=== PATIENT | female | born 1935 | race Caucasian/White ===

== ENCOUNTER 2016-11-03 14:10 | Emergency (ER) | payer MEDICARE ==
[2016-11-03] MEDS ORDERED: Aspirin Low Dose CHEW TAB* 81 MG PO ONE (14:38)
[2016-11-03 15:08] LABS: Hematocrit 41 % (35-47); Hemoglobin 13.6 g/dl (12.0-16.0); Mean Corpuscular HGB Conc 34 g/dl (31-36); Mean Corpuscular Hemoglobin 30 pg (27-31); Mean Corpuscular Volume 89 fL (80-97); Mean Platelet Volume 9 um3 (7.4-10.4); Red Blood Count 4.58 10^6/ul (4.0-5.4); Red Cell Distribution Width 14 % (10.5-15); White Blood Count 8.5 10^3/ul (3.5-10.8)
[2016-11-03 15:16] LABS: Albumin 4.2 g/dL (3.2-5.2); Calcium 9.9 mg/dL (8.6-10.3); EGFR African American 102.1 (>60); EGFR Non-African American 79.4 (>60); Globulin 2.5 g/dL (2-4); Potassium 3.6 mmol/L (3.5-5.0); Total Bilirubin 0.5 mg/dL (0.2-1.0); Total Protein 6.7 g/dL (6.4-8.9)
[2016-11-03 15:37] LABS: TSH (Thyroid Stimulating Horm) 1.55 mcIU/mL (0.34-5.60)
[2016-11-03] MEDS ORDERED: LORazepam INJ* 2 MG/ML 1 ML VIAL IV PUSH ONE (15:41)
[2016-11-03 16:53] VITALS: BP 132/68
--- NOTE | 2016-11-03 16:58 | ED ---
Frank Manzo Erika, scribed for Seun Agee MD on 11/03/16 at 1442 . Shortness of Breath - HPI Summary HPI Summary: Patient is a 81-year-old female presenting to the ED with a CC of difficulty breathing. Pt reports that the past two mornings and nights when waking up and going to sleep, she has noted the SOB. She has not noted any SOB besides this. Pt has also noted some heaviness in her chest intermittently, which never lasts long. She denies fever and cough. Pt reports a lot of recent stress, as her twin sister has cancer. Hx HTN - did not take medication this morning. Hx GERD. Pt does not smoke, and occasionally drinks. - History of Current Complaint Chief Complaint: EDShortnessOfBreath Hx Obtained From: Patient, Family/International Project Manager - Onset/Duration: Sudden Onset, Lasting Minutes Timing: Intermittent Episodes Lasting: Current Severity: None Dyspnea At: Rest Alleviating Factors: Spontaneous Resolution - Allergy/Home Medications Allergies/Adverse Reactions: Allergies Allergy/AdvReac Type Severity Reaction Status Date / Time Carvedilol [From Coreg] Allergy Swelling Verified 06/22/16 14:32 CI Pigment Blue 63 Allergy Nausea Verified 06/22/16 14:32 [From Bystolic] Nebivolol [From Bystolic] Allergy Nausea Verified 06/22/16 14:32 Sorbitan [From Bystolic] Allergy Nausea Verified 06/22/16 14:32 Yellow Dye [From Bystolic] Allergy Nausea Verified 06/22/16 14:32 shrimp Allergy Swelling Uncoded 06/22/16 14:32 PMH/Surg Hx/FS Hx/Imm Hx Endocrine/Hematology History: Denies: Hx Diabetes, Hx Thyroid Disease Cardiovascular History: Reports: Hx Angina - INFREQUENT HEAVINESS PER PATIENT, Hx Hypertension, Other Cardiovascular Problems/Disorders - ANGINA/ARRHYTHMIA Denies: Hx Coronary Artery Disease, Hx Hypercholesterolemia, Hx Myocardial Infarction, Hx Valvular Heart Disease Respiratory History: Denies: Hx Asthma, Hx Chronic Obstructive Pulmonary Disease (COPD) GI History: Denies: Hx Ulcer - Cancer History Cancer Type, Location and Year: Ovarian cancer - Surgical History Surgery Procedure, Year, and Place: hysterectomy. tonsilectomy Infectious Disease History: Yes Infectious Disease History: Reports: History Other Infectious Disease - lyme 2014 Denies: Hx Clostridium Difficile, Hx Hepatitis, Hx Human Immunodeficiency Virus (HIV), Hx of Known/Suspected MRSA, Hx Shingles, Hx Tuberculosis, Hx Known/ Suspected VRE, Hx Known/Suspected VRSA, Traveled Outside the [place] in Last 30 Days - Family History Known Family History: Positive: Cardiac Disease - Father - of [place], Hypertension, Blood Disorder - PE - Social History Lives: With Family Alcohol Use: None Hx Substance Use: No Substance Use Type: Reports: None Hx Tobacco Use: No Smoking Status (MU): Never Smoked Tobacco Have You Smoked in the Last Year: No Review of Systems Negative: Fever Cardiovascular: Other - intermittent heaviness in chest Positive: Shortness Of Breath. Negative: Cough Psychological: Other - Recent stress All Other Systems Reviewed And Are Negative: Yes Physical Exam - Summary Physical Exam Summary: VITAL SIGNS: Reviewed. GENERAL: Patient is a well developed and nourished nervous female who is lying comfortable in the stretcher. Patient is not in any acute respiratory distress. HEAD AND FACE: No signs of trauma. No ecchymosis, hematomas or skull depressions. No sinus tenderness. EYES: PERRLA, EOMI x 2, No injected conjunctiva, no nystagmus. EARS: Hearing grossly intact. Ear canals and tympanic membranes are within normal limits. MOUTH: Oropharynx within normal limits. NECK: Supple, trachea is midline, no adenopathy, no JVD, no carotid bruit, no c- spine tenderness, neck with full ROM. CHEST: Symmetric, no tenderness at palpation LUNGS: Clear to auscultation bilaterally. No wheezing or crackles. CVS: Regular rate and rhythm, S1 and S2 present, no murmurs or gallops appreciated. ABDOMEN: Soft, non-tender. No signs of distention. No rebound no guarding, and no masses palpated. Bowel sounds are normal. EXTREMITIES: FROM in all major joints, no edema, no cyanosis or clubbing. NEURO: Alert and oriented x 3. No acute neurological deficits. Speech is normal and follows commands. SKIN: Dry and warm Triage Information Reviewed: Yes Vital Signs On Initial Exam: Initial Vitals Temp Pulse Resp BP Pulse Ox 99 F 69 16 209/71 100 11/03/16 14:14 11/03/16 14:14 11/03/16 14:14 11/03/16 14:14 11/03/16 14:14 Vital Signs Reviewed: Yes Diagnostics - Vital Signs Vital Signs Temp Pulse Resp BP Pulse Ox 01/15/17 14:30 67 11 198/74 100 11/03/16 14:29 204/75 11/03/16 14:14 99 F 69 16 209/71 100 - Laboratory Lab Results: Lab Results 11/03/16 11/03/16 11/03/16 Range/Units 14:45 14:45 14:45 WBC 8.5 (3.5-10.8) 10^3/ul RBC 4.58 (4.0-5.4) 10^6/ul Hgb 13.6 (12.0-16.0) g/dl Hct 41 (35-47) % MCV 89 (80-97) fL MCH 30 (27-31) pg MCHC 34 (31-36) g/dl RDW 14 (10.5-15) % Plt Count 161 (150-450) 10^3/ul MPV 9 (7.4-10.4) um3 Neut % (Auto) 66.2 (38-83) % Lymph % (Auto) 25.3 (25-47) % [place] % (Auto) 7.1 (1-9) % Eos % (Auto) 0.5 (0-6) % Baso % (Auto) 0.9 (0-2) % Absolute Neuts (auto) 5.6 (1.5-7.7) 10^3/ul Absolute Lymphs (auto) 2.2 (1.0-4.8) 10^3/ul Absolute Monos (auto) 0.6 (0-0.8) 10^3/ul Absolute Eos (auto) 0 (0-0.6) 10^3/ul Absolute Basos (auto) 0.1 (0-0.2) 10^3/ul Absolute Nucleated RBC 0 10^3/ul Nucleated RBC % 0 Sodium 137 (133-145) mmol/L Potassium 3.6 (3.5-5.0) mmol/L Chloride 98 L (101-111) mmol/L Carbon Dioxide 31 (22-32) mmol/L Anion Gap 8 (2-11) mmol/L BUN 22 (6-24) mg/dL Creatinine 0.71 (0.51-0.95) mg/dL Est GFR ( Amer) 102.1 (>60) Est GFR (Non-Af Amer) 79.4 (>60) BUN/Creatinine Ratio 31.0 H (8-20) Glucose 99 (70-100) mg/dL Lactic Acid 1.2 (0.5-2.0) mmol/L Calcium 9.9 (8.6-10.3) mg/dL Total Bilirubin 0.50 (0.2-1.0) mg/dL AST 21 (13-39) U/L ALT 18 (7-52) U/L Alkaline Phosphatase 69 (34-104) U/L CK-MB (CK-2) 3.7 (0.6-6.3) ng/mL Myoglobin 32.1 (14.3-65.8) ng/mL Troponin I 0.00 (<0.04) ng/mL B-Natriuretic Peptide ( - 100) pg/mL Total Protein 6.7 (6.4-8.9) g/dL Albumin 4.2 (3.2-5.2) g/dL Globulin 2.5 (2-4) g/dL Albumin/Globulin Ratio 1.7 (1-3) TSH 1.55 (0.34-5.60) mcIU/mL 11/03/16 Range/Units 14:45 WBC (3.5-10.8) 10^3/ul RBC (4.0-5.4) 10^6/ul Hgb (12.0-16.0) g/dl Hct (35-47) % MCV (80-97) fL MCH (27-31) pg MCHC (31-36) g/dl RDW (10.5-15) % Plt Count (150-450) 10^3/ul MPV (7.4-10.4) um3 Neut % (Auto) (38-83) % Lymph % (Auto) (25-47) % [place] % (Auto) (1-9) % Eos % (Auto) (0-6) % Baso % (Auto) (0-2) % Absolute Neuts (auto) (1.5-7.7) 10^3/ul Absolute Lymphs (auto) (1.0-4.8) 10^3/ul Absolute Monos (auto) (0-0.8) 10^3/ul Absolute Eos (auto) (0-0.6) 10^3/ul Absolute Basos (auto) (0-0.2) 10^3/ul Absolute Nucleated RBC 10^3/ul Nucleated RBC % Sodium (133-145) mmol/L Potassium (3.5-5.0) mmol/L Chloride (101-111) mmol/L Carbon Dioxide (22-32) mmol/L Anion Gap (2-11) mmol/L BUN (6-24) mg/dL Creatinine (0.51-0.95) mg/dL Est GFR ( Amer) (>60) Est GFR (Non-Af Amer) (>60) BUN/Creatinine Ratio (8-20) Glucose (70-100) mg/dL Lactic Acid (0.5-2.0) mmol/L Calcium (8.6-10.3) mg/dL Total Bilirubin (0.2-1.0) mg/dL AST (13-39) U/L ALT (7-52) U/L Alkaline Phosphatase (34-104) U/L CK-MB (CK-2) (0.6-6.3) ng/mL Myoglobin (14.3-65.8) ng/mL Troponin I (<0.04) ng/mL B-Natriuretic Peptide 76 ( - 100) pg/mL Total Protein (6.4-8.9) g/dL Albumin (3.2-5.2) g/dL Globulin (2-4) g/dL Albumin/Globulin Ratio (1-3) TSH (0.34-5.60) mcIU/mL Result Diagrams: 11/03/16 14:45 11/03/16 14:45 Lab Statement: Any lab studies that have been ordered have been reviewed, and results considered in the medical decision making process. - Radiology CXR Xray Interpretation: No Acute Changes Radiology Interpretation Completed By: ED Physician - EKG 14:27 Cardiac Rate: NL - at 71 bpm EKG Rhythm: Sinus Rhythm EKG Interpretation: No ST elevation Re-Evaluation - Re-Evaluation First Eval Re-Evaluation Time: 16:24 Change: Improved Course/Dx - Course Assessment/Plan: Patient is a 81-year-old female presenting to the ED with a CC of difficulty breathing. Pt reports that the past two mornings and nights when waking up and going to sleep, she has noted the SOB. She has not noted any SOB besides this. Pt has also noted some heaviness in her chest intermittently, which never lasts long. She denies fever and cough. Pt reports a lot of recent stress, as her twin sister has cancer. Hx HTN - did not take medication this morning. Hx GERD. Pt does not smoke, and occasionally drinks. Blood work wnl. Troponin is 0.00. CXR w/o acute pathology. EKG sinus rhythm w/o ARLEN. I gave the patient Ativan for anxiety and symptoms have improved. Because the patient has no significant comorbidities and no family history of cardiovascular disease the patient will be discharged home with follow up of PMD. I discussed all the findings and test results with the patient. Patient was instructed to return to the emergency room immediately if any of the symptoms return or worsens. Patient understands and agrees. Plan of care was discussed with the patient and patient understands and agrees. All questions were answered at patient satisfaction. There were no further complaints or concerns. PE before discharge: CVS: S1 and S2 present. No murmurs appreciated. Abdominal exam before discharge: Soft, non-tender. No signs of distention. No rebound no guarding, and no masses palpated. Bowel sounds are normal. Patient is alert and oriented x 3. Patient is hemodynamically stable. - Diagnoses Differential Diagnosis/HQI/PQRI: Positive: Chest Wall Pain, DC, Other - anxiety Provider Diagnoses: Atypical chest pain, Anxiety Discharge - Discharge Plan Condition: Stable Disposition: HOME Prescriptions: hydrOXYzine HCL TAB* [Atarax TAB*] 25 mg PO TID PRN #20 tab PRN Reason: Anxiety Patient Education Materials: Chest Pain (ED), Anxiety (ED) Referrals: Maliha De La Rosa MD [Primary Care Provider] - The documentation as recorded by the Frank scherer Erika accurately reflects the service I personally performed and the decisions made by me, Seun Agee MD.
--- NOTE | 2016-11-03 19:48 | RAD ---
INDICATION: Pneumonia COMPARISON: Chest x-ray July 31, 2016 TECHNIQUE: An AP portable view obtained at 1450 hours is submitted. FINDINGS: Bones/Soft Tissues: There are no acute bony findings. There is a scoliotic deformity. Cardiomediastinal: The cardiomediastinal silhouette is normal. Lungs: There are no infiltrates. There is mild hyperinflation. Pleura: There are no pleural effusions. Other: None IMPRESSION: HYPERINFLATION. NO ACTIVE DISEASE.
== END 2016-11-03 16:51 | disposition home or self-care (01) ==
LOC: ED 14:10
DX: R07.89 Other chest pain (principal); F41.9 Anxiety disorder, unspecified; I10 Essential (primary) hypertension; K21.9 Gastro-esophageal reflux disease without esophagitis; I20.9 Angina pectoris, unspecified
CPT/HCPCS: 36415; 71010; 80053; 82553; 83605; 83874; 83880; 84443; 84484; 85025; 93005; 99282; A9270-GY; J2060

== ENCOUNTER 2017-06-14 17:20 | Emergency (ER) | payer MEDICARE ==
[2017-06-14 18:46] VITALS: BP 155/68
--- NOTE | 2017-06-14 19:32 | UC ---
Skin Complaint HPI - HPI Summary HPI Summary: Scratch from a dirty nail on right hand----wash immediately but needs to have tetanus immunization updates - History of Current Complaint Chief Complaint: UCGeneralIllness Time Seen by Provider: 06/14/17 19:21 Stated Complaint: NEEDS TETANUS SHOT Hx Obtained From: Patient ?: No Onset/Duration: Sudden Onset Skin Exposure Onset/Duration: Minutes Ago Timing: Constant Onset Severity: Mild Current Severity: None Pain Intensity: 0 Pain Scale Used: 0-10 Numeric Location: Discrete Aggravating: Nothing Alleviating: Nothing Associated Signs & Symptoms: Positive: Negative Related History: Trauma - Allergy/Home Medications Allergies/Adverse Reactions: Allergies Allergy/AdvReac Type Severity Reaction Status Date / Time Carvedilol [From Coreg] Allergy Swelling Verified 06/14/17 18:46 CI Pigment Blue 63 Allergy Nausea Verified 06/14/17 18:46 [From Bystolic] Fluticasone [From Flovent] Allergy Swelling Verified 06/14/17 18:47 Of Face,Lips,& Throat Nebivolol [From Bystolic] Allergy Nausea Verified 06/14/17 18:46 Sorbitan [From Bystolic] Allergy Nausea Verified 06/14/17 18:46 Yellow Dye [From Bystolic] Allergy Nausea Verified 06/14/17 18:46 shrimp Allergy Swelling Uncoded 06/14/17 18:46 Home Medications: Home Medications Nattokinase 100 mg PO 06/14/17 [History] Review of Systems Constitutional: Negative Skin: Other - small abrasion right hand Eyes: Negative ENT: Negative Respiratory: Negative Cardiovascular: Negative Gastrointestinal: Negative Genitourinary: Negative Motor: Negative Neurovascular: Negative Musculoskeletal: Negative Neurological: Negative Psychological: Negative All Other Systems Reviewed And Are Negative: Yes PMH/Surg Hx/FS Hx/Imm Hx Previously Healthy: No Cardiovascular History: Hypertension - Surgical History Surgical History: Yes Surgery Procedure, Year, and Place: hysterectomy. tonsilectomy - Family History Known Family History: Positive: Cardiac Disease - Father - of [place], Hypertension, Blood Disorder - PE - Social History Occupation: Retired Lives: With Family Alcohol Use: None Substance Use Type: None Smoking Status (MU): Never Smoked Tobacco Have You Smoked in the Last Year: No Physical Exam Triage Information Reviewed: Yes Appearance: Well-Appearing, No Pain Distress, Well-Nourished Vital Signs: Initial Vital Signs Temp 99.3 F 06/14/17 18:43 Pulse 75 06/14/17 18:43 Resp 18 06/14/17 18:43 BP 155/68 06/14/17 18:43 Pulse Ox 99 06/14/17 18:43 Vital Signs Reviewed: Yes Eye Exam: Normal Eyes: Positive: Conjunctiva Clear ENT Exam: Normal ENT: Positive: Normal ENT inspection, Hearing grossly normal. Negative: Trismus , Muffled/hoarse voice Dental Exam: Normal Neck exam: Normal Neck: Positive: Supple, Nontender Respiratory Exam: Normal Respiratory: Positive: No respiratory distress, No accessory muscle use Cardiovascular Exam: Normal Cardiovascular: Positive: RRR, Pulses Normal, Brisk Capillary Refill Musculoskeletal Exam: Normal Musculoskeletal: Positive: Strength Intact, ROM Intact, No Edema Neurological Exam: Normal Neurological: Positive: Alert, Muscle Tone Normal Psychological Exam: Normal Skin Exam: Normal Course/Dx - Course Course Of Treatment: up date tetanus, soap and water wash follow with pcp prn - Differential Diagnoses - Skin Complaint Differential Diagnoses: Cellulitis, Other - abrasion, tetanus update - Diagnoses Provider Diagnoses: update tetanus, skin abrasion right hand Discharge - Discharge Plan Condition: Stable Disposition: HOME Patient Education Materials: Diphtheria/Acellular Pertussis/Tetanus Booster Vaccine (By injection), Puncture Wound (ED), Hypertension (ED) Referrals: Rj BYNUM,Maliha Fontenot [Primary Care Provider] - If Needed
[2017-06-14] MEDS ORDERED: Tetan/Diph/Pertus SYR(Tdap)* 0.5 ML SYR(BOOSTRIX) use SYR IM ONE (19:37)
== END 2017-06-14 19:55 | disposition home or self-care (01) ==
LOC: UCEAST 17:20
DX: S60.511A Abrasion of right hand, initial encounter (principal); W45.0XXA Nail entering through skin, initial encounter; Z23 Encounter for immunization
CPT/HCPCS: 90471; 90715; 99211; G0463

== ENCOUNTER 2018-03-11 17:30 | Emergency (ER) | payer MEDICARE ==
[2018-03-11 19:00] LABS: ABS Basophils 0.1 10^3/ul (0-0.2); ABS Eosinophils 0.1 10^3/ul (0-0.6); ABS Lymphocytes 1.8 10^3/ul (1.0-4.8); ABS Monocytes 0.7 10^3/ul (0-0.8); ABS Neutrophils 5.6 10^3/ul (1.5-7.7); ABS Nucleated RBC 0 10^3/ul; Eosinophil % 0.8 % (0-6); Hematocrit 36 % (35-47); Hemoglobin 12.2 g/dl (12.0-16.0); Lymphocyte % 22.6 % (25-47); Mean Corpuscular HGB Conc 34 g/dl (31-36); Mean Corpuscular Hemoglobin 31 pg (27-31); Mean Corpuscular Volume 89 fL (80-97); Nucleated Red Blood Cells % 0; Platelet Count 179 10^3/ul (150-450); Red Blood Count 3.98 10^6/ul (4.0-5.4); Red Cell Distribution Width 14 % (10.5-15); White Blood Count 8.2 10^3/ul (3.5-10.8)
--- NOTE | 2018-03-11 19:07 | RAD ---
Indication: Chest pain. Elevated blood pressure. Comparison: November 03, 2016 Technique: Upright AP 1837 hours Report: Elevated lung volumes and both diffuse mild prominence of the interstitial markings and patchy rarefaction of the mid to upper lung zone interstitial markings. Bilateral nipple shadows noted. No focal pulmonary lesion, compelling alveolar consolidation, pleural effusion, pneumothorax. The heart, pulmonary vasculature, and mediastinal contours are unremarkable. IMPRESSION: Stigmata of obstructive lung disease. No acute pulmonary or cardiac process evident.
[2018-03-11] MEDS ORDERED: cloNIDine TAB* 0.1 MG PO ONE (19:09)
[2018-03-11 19:25] LABS: EGFR Non-African American 103.9 (>60)
--- NOTE | 2018-03-11 19:56 | ED ---
Abel Manzo Julia, scribed for Seun Agee MD on 03/11/18 at 1805 . Hypertension - HPI Summary HPI Summary: This is a 83 year old F presenting to [facility] accompanied by her with a chief complaint of hypertension measured at 200/90 today at her PCP's office. She states that her blood pressure has been elevated since last night and has been gradually worsening since then. Patient denies CP, SOB and blurry vision. Patient has no other complaints at his time. Patient is currently taking 20/25 Lisinopril and 120mg of Diltiazem daily. Patient states she missed a dose of her HTN medications two days ago. Additional medications include Ativan as needed for anxiety. 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 - History of Current Complaint Chief Complaint: EDHypertension Stated Complaint: HIGH BLOOD PRESSURE Time Seen by Provider: 03/11/18 17:53 Onset/Duration: Started Hours Ago Timing: Constant Reported Blood Pressure Prior To Arrival: 200/90 Associated Signs & Symptoms: Negative Related Hx: Rx Non-Compliance - Allergies/Home Medications Allergies/Adverse Reactions: Allergies Allergy/AdvReac Type Severity Reaction Status Date / Time MS Carvedilol [From Coreg] Allergy Swelling Verified 03/11/18 17:45 MS CI Pigment Blue 63 Allergy Nausea Verified 03/11/18 17:45 [From Bystolic] MS Fluticasone [From Flovent] Allergy Swelling Verified 03/11/18 17:45 Of Face,Lips,& Throat MS Nebivolol [From Bystolic] Allergy Nausea Verified 03/11/18 17:45 MS Sorbitan [From Bystolic] Allergy Nausea Verified 03/11/18 17:45 MS Yellow Dye [From Bystolic] Allergy Nausea Verified 03/11/18 17:45 shrimp Allergy Swelling Uncoded 03/11/18 17:45 Home Medications: Home Medications Acetylcysteine CAP (RENAL)* 600 mg PO DAILY 03/11/18 [History Confirmed 03/11/18 ] Ascorbic Acid TAB* [Vitamin C TAB*] 2,000 mg PO DAILY 03/11/18 [History Confirmed 03/11/18] Aspirin EC TAB* [Ecotrin EC Low Dose 81 MG*] 81 mg PO DAILY 03/11/18 [History Confirmed 03/11/18] Astragalus Root 1 cap PO DAILY 03/11/18 [History Confirmed 03/11/18] Cholecalciferol CAP/TAB(NF) [Vitamin D3 CAP/TAB (NF)] 5,000 unit PO DAILY [History Confirmed 03/11/18] L. Acidophilus/Pectin, [place] [Acidophilus Capsule] 1 each PO DAILY 03/11/18 [ History Confirmed 03/11/18] Lisinopril/HCTZ 20/25(NF) [Zestoretic 20/25(NF)] 1 tab PO DAILY 03/11/18 [ History Confirmed 03/11/18] Mushroom Tincture 1 cap PO DAILY 03/11/18 [History Confirmed 03/11/18] Pyridoxine TAB* [Vitamin B6 TAB*] 25 mg PO DAILY 03/11/18 [History Confirmed ] Resveratrol 50 mg PO DAILY 03/11/18 [History Confirmed 03/11/18] Ubidecarenone [Co Q-10] 100 mg PO DAILY 03/11/18 [History Confirmed 03/11/18] Zinc Gluconate [Zinc] 30 mg PO DAILY 03/11/18 [History Confirmed 03/11/18] dilTIAZem HCl [Diltiazem ER] 120 mg PO DAILY 03/11/18 [History Confirmed ] PMH/Surg Hx/FS Hx/Imm Hx Endocrine/Hematology History: Denies: Hx Diabetes, Hx Thyroid Disease Cardiovascular History: Reports: Hx Angina, Hx Hypertension, Other Cardiovascular Problems/Disorders - murmur from childhood Denies: Hx Coronary Artery Disease, Hx Hypercholesterolemia, Hx Myocardial Infarction, Hx Valvular Heart Disease Respiratory History: Denies: Hx Asthma, Hx Chronic Obstructive Pulmonary Disease (COPD) GI History: Denies: Hx Ulcer - Cancer History Cancer Type, Location and Year: Ovarian cancer - Surgical History Surgery Procedure, Year, and Place: hysterectomy. tonsilectomy Infectious Disease History: No Infectious Disease History: Denies: Hx Clostridium Difficile, Hx Hepatitis, Hx Human Immunodeficiency Virus (HIV), Hx of Known/Suspected MRSA, Hx Shingles, Hx Tuberculosis, Hx Known/ Suspected VRE, Hx Known/Suspected VRSA, History Other Infectious Disease - lyme 03/2015, Traveled Outside the [place] in Last 30 Days - Family History Known Family History: Positive: Cardiac Disease - Father - of [place], Hypertension, Blood Disorder - PE - Social History Alcohol Use: None Hx Substance Use: No Substance Use Type: Reports: None Hx Tobacco Use: No Smoking Status (MU): Never Smoked Tobacco Have You Smoked in the Last Year: No Review of Systems Negative: Blurred Vision Positive: Other - hypertension. Negative: Chest Pain Negative: Shortness Of Breath All Other Systems Reviewed And Are Negative: Yes Physical Exam - Summary Physical Exam Summary: VITAL SIGNS: Reviewed. GENERAL: Patient is a well-developed and nourished female who is lying comfortable in the stretcher. Patient is not in any acute respiratory distress. HEAD AND FACE: No signs of trauma. No ecchymosis, hematomas or skull depressions. No sinus tenderness. EYES: PERRLA, EOMI x 2, No injected conjunctiva, no nystagmus. EARS: Hearing grossly intact. Ear canals and tympanic membranes are within normal limits. MOUTH: Oropharynx within normal limits. NECK: Supple, trachea is midline, no adenopathy, no JVD, no carotid bruit, no c- spine tenderness, neck with full ROM. CHEST: Symmetric, no tenderness at palpation LUNGS: Clear to auscultation bilaterally. No wheezing or crackles. CVS: Regular rate and rhythm, S1 and S2 present, murmur appreciated, no gallops appreciated. ABDOMEN: Soft, non-tender. No signs of distention. No rebound no guarding, and no masses palpated. Bowel sounds are normal. EXTREMITIES: FROM in all major joints, no edema, no cyanosis or clubbing. NEURO: Alert and oriented x 3. No acute neurological deficits. Speech is normal and follows commands. SKIN: Dry and warm Triage Information Reviewed: Yes Vital Signs On Initial Exam: Initial Vitals Temp Pulse Resp BP Pulse Ox 99.2 F 72 18 181/81 97 03/11/18 17:37 03/11/18 17:37 03/11/18 17:37 03/11/18 17:37 03/11/18 17:37 Vital Signs Reviewed: Yes Diagnostics - Vital Signs Vital Signs Temp Pulse Resp BP Pulse Ox 03/11/18 17:37 99.2 F 72 18 181/81 97 - Laboratory Lab Results: Lab Results 03/11/18 03/11/18 03/11/18 Range/Units 18:46 18:46 18:46 WBC 8.2 (3.5-10.8) 10^3/ul RBC 3.98 L (4.0-5.4) 10^6/ul Hgb 12.2 (12.0-16.0) g/dl Hct 36 (35-47) % MCV 89 (80-97) fL MCH 31 (27-31) pg MCHC 34 (31-36) g/dl RDW 14 (10.5-15) % Plt Count 179 (150-450) 10^3/ul MPV 9.0 (7.4-10.4) um3 Neut % (Auto) 67.8 (38-83) % Lymph % (Auto) 22.6 L (25-47) % [place] % (Auto) 8.0 H (0-7) % Eos % (Auto) 0.8 (0-6) % Baso % (Auto) 0.8 (0-2) % Absolute Neuts (auto) 5.6 (1.5-7.7) 10^3/ul Absolute Lymphs (auto) 1.8 (1.0-4.8) 10^3/ul Absolute Monos (auto) 0.7 (0-0.8) 10^3/ul Absolute Eos (auto) 0.1 (0-0.6) 10^3/ul Absolute Basos (auto) 0.1 (0-0.2) 10^3/ul Absolute Nucleated RBC 0 10^3/ul Nucleated RBC % 0 Sodium 139 (139-145) mmol/L Potassium 3.9 (3.5-5.0) mmol/L Chloride 100 L (101-111) mmol/L Carbon Dioxide 31 (22-32) mmol/L Anion Gap 8 (2-11) mmol/L BUN 21 (6-24) mg/dL Creatinine 0.56 (0.51-0.95) mg/dL Est GFR ( Amer) 133.6 (>60) Est GFR (Non-Af Amer) 103.9 (>60) BUN/Creatinine Ratio 37.5 H (8-20) Glucose 101 H (70-100) mg/dL Lactic Acid 0.6 (0.5-2.0) mmol/L Calcium 9.1 (8.6-10.3) mg/dL Total Bilirubin 0.40 (0.2-1.0) mg/dL AST 22 (13-39) U/L ALT 18 (7-52) U/L Alkaline Phosphatase 64 (34-104) U/L Total Creatine Kinase 98 (10-223) U/L Troponin I 0.00 (<0.04) ng/mL B-Natriuretic Peptide ( - 100) pg/mL Total Protein 5.6 L (6.4-8.9) g/dL Albumin 3.7 (3.2-5.2) g/dL Globulin 1.9 L (2-4) g/dL Albumin/Globulin Ratio 1.9 (1-3) / Range/Units 18:46 WBC (3.5-10.8) 10^3/ul RBC (4.0-5.4) 10^6/ul Hgb (12.0-16.0) g/dl Hct (35-47) % MCV (80-97) fL MCH (27-31) pg MCHC (31-36) g/dl RDW (10.5-15) % Plt Count (150-450) 10^3/ul MPV (7.4-10.4) um3 Neut % (Auto) (38-83) % Lymph % (Auto) (25-47) % [place] % (Auto) (0-7) % Eos % (Auto) (0-6) % Baso % (Auto) (0-2) % Absolute Neuts (auto) (1.5-7.7) 10^3/ul Absolute Lymphs (auto) (1.0-4.8) 10^3/ul Absolute Monos (auto) (0-0.8) 10^3/ul Absolute Eos (auto) (0-0.6) 10^3/ul Absolute Basos (auto) (0-0.2) 10^3/ul Absolute Nucleated RBC 10^3/ul Nucleated RBC % Sodium (139-145) mmol/L Potassium (3.5-5.0) mmol/L Chloride (101-111) mmol/L Carbon Dioxide (22-32) mmol/L Anion Gap (2-11) mmol/L BUN (6-24) mg/dL Creatinine (0.51-0.95) mg/dL Est GFR ( Amer) (>60) Est GFR (Non-Af Amer) (>60) BUN/Creatinine Ratio (8-20) Glucose (70-100) mg/dL Lactic Acid (0.5-2.0) mmol/L Calcium (8.6-10.3) mg/dL Total Bilirubin (0.2-1.0) mg/dL AST (13-39) U/L ALT (7-52) U/L Alkaline Phosphatase (34-104) U/L Total Creatine Kinase (10-223) U/L Troponin I (<0.04) ng/mL B-Natriuretic Peptide 141 H ( - 100) pg/mL Total Protein (6.4-8.9) g/dL Albumin (3.2-5.2) g/dL Globulin (2-4) g/dL Albumin/Globulin Ratio (1-3) Result Diagrams: 03/11/18 18:46 03/11/18 18:46 Lab Statement: Any lab studies that have been ordered have been reviewed, and results considered in the medical decision making process. - Radiology CXR Radiology Interpretation Completed By: Radiologist - Stigmata of obstructive lung disease. No acute pulmonary or cardiac process evident. Dr. Agee has reviewed this report. - EKG 18:39 Cardiac Rate: NL EKG Rhythm: Sinus Rhythm - 67 BPM EKG Interpretation: no ST elevations Re-Evaluation - Re-Evaluation 1 Re-Evaluation Time: 19:52 Change: Improved - Patient's blood pressure is 150/64 Hypertension Course/Dx - Course Assessment/Plan: This patient is an 83-year-old female who presents to the emergency room with a chief complaint of having increased blood pressure. She noticed that she had blood pressure because she was using a new blood pressure machine and the blood pressure is 179/83. Patient went to see the primary care physician and the blood pressure was 200/100, therefore the patient was directed to the emergency department. She denies any chest pain or palpitations , denies any shortness of breath, denies any headache or blurred vision, denies any abdominal pain nausea vomiting or diarrhea. She has no other complaints. Physical sounds without any significant abnormality. Chest x-ray negative for an acute pathology. In the ED course the patient was given currently being 0.1 mg and the blood pressure has significantly improved. The blood pressure now is 150/64. I discussed the length that this results and findings with the patient and she agrees to be discharged home and follow with the primary care physician. The patient continues to be asymptomatic and she is hemodynamically stable. She was instructed to return to the emergency department she develops any chest pain or palpitations, headache or dizziness. She understands and agrees. - Diagnoses Provider Diagnoses: Uncontrolled hypertension Discharge - Sign-Out/Discharge Documenting (check all that apply): Discharge/Admit/Transfer - Discharge Plan Condition: Stable Disposition: HOME Patient Education Materials: Hypertension (ED) Referrals: Rj BYNUM,Maliha Fontenot [Primary Care Provider] - 1 Week () Additional Instructions: FOLLOW UP WITH YOUR PRIMARY CARE PROVIDER WITHIN ONE WEEK FOR HIGH BLOOD PRESSURE NOTED TODAY. RETURN TO THE EMERGENCY ROOM FOR CHANGING OR WORSENING SYMPTOMS. - Billing Disposition and Condition Condition: STABLE Disposition: HOME The documentation as recorded by the Abel scherer Julia accurately reflects the service I personally performed and the decisions made by , Seun Agee MD.
[2018-03-11 20:29] VITALS: BP 157/68
== END 2018-03-11 20:33 | disposition home or self-care (01) ==
LOC: ED 17:30
DX: I10 Essential (primary) hypertension (principal); F41.9 Anxiety disorder, unspecified; Z79.899 Other long term (current) drug therapy; Z88.8 Allergy status to other drugs, medicaments and biological substances
CPT/HCPCS: 36415; 71045; 80053; 82550; 83605; 83880; 84484; 85025; 93005; 99283; A9270-GY

== ENCOUNTER 2018-03-14 16:08 | Emergency (ER) | payer MEDICARE ==
[2018-03-14] MEDS ORDERED: NS 0.9% 1000 ML* 500 ML IV ONE (17:31)
[2018-03-14 18:06] LABS: Urine Appearance Cloudy; Urine Blood 3+ (Negative); Urine Color Yellow; Urine Ketones 1+ (Negative); Urine Protein 2+(100 mg/dL) (Negative); Urine Specific Gravity 1.013 (1.010-1.030); Urine Urobilinogen Negative (Negative)
[2018-03-14 18:30] LABS: EGFR Non-African American 84.5 (>60)
[2018-03-14] MEDS ORDERED: cefTRIAXone(*) 1 GM in NS 0.9% 50 ML* 50 ML IVPB ONE (18:42)
[2018-03-14 18:45] LABS: ABS Basophils 0 10^3/ul (0-0.2); ABS Eosinophils 0 10^3/ul (0-0.6); ABS Lymphocytes 0.6 10^3/ul (1.0-4.8); ABS Monocytes 1.2 10^3/ul (0-0.8); ABS Neutrophils 11.9 10^3/ul (1.5-7.7); ABS Nucleated RBC 0 10^3/ul; Eosinophil % 0 % (0-6); Hematocrit 36 % (35-47); Lymphocyte % 4.6 % (25-47); Mean Corpuscular HGB Conc 34 g/dl (31-36); Mean Corpuscular Hemoglobin 30 pg (27-31); Mean Corpuscular Volume 90 fL (80-97); Mean Platelet Volume 8.9 um3 (7.4-10.4); Nucleated Red Blood Cells % 0; Platelet Count 170 10^3/ul (150-450); Red Blood Count 3.96 10^6/ul (4.0-5.4); Red Cell Distribution Width 14 % (10.5-15); White Blood Count 13.7 10^3/ul (3.5-10.8)
[2018-03-14] MEDS ORDERED: cefTRIAXone(*) 1 GM ADVAN/BAG ONE (18:55)
[2018-03-14] MEDS ORDERED: Metoclopramide IV* 5 MG/ML 2 ML VIAL IV ONE (20:41)
[2018-03-14] MEDS ORDERED: Acetaminophen TAB* 325 MG PO ONE (21:34)
--- NOTE | 2018-03-14 21:38 | ED ---
Eloy Manzo Natalie, scribed for Seun Agee MD on 03/14/18 at 1739 . GI/ HPI - HPI Summary HPI Summary: The patient is an 83 y/o F presenting to the ED c/o dysuria and bilateral flank pain starting today. She was at [facility] for dysuria, where labs showed that she has a "serious urinary infection." She also has multiple insect bites to the neck, which were diagnosed as tick bites at , so the patient was given Doxycycline. The bites are red with surrounding swelling. The pain is rated 6/ 10 in severity. Patient additionally c/o low abdominal pain. - History of Current Complaint Chief Complaint: EDFlankPain Time Seen by Provider: 03/14/18 17:13 Stated Complaint: WEAKNESS/?UTI Hx Obtained From: Patient Onset/Duration: Started Hours Ago, Still Present Timing: Constant, Lasting Hours Severity: Moderate Current Severity: Moderate Pain Intensity: 6 Location of Pain: Suprapubic Pain Radiates to: Flank Associated Signs and Symptoms: Positive: Dysuria, Flank Pain, Abdominal Pain, UTI Symptoms, Other: - insect bites on neck - Allergy/Home Medications Allergies/Adverse Reactions: Allergies Allergy/AdvReac Type Severity Reaction Status Date / Time carvedilol [From Coreg] Allergy Swelling Verified 03/14/18 16:11 fluticasone Allergy Swelling Verified 03/14/18 16:11 Of Face,Lips,& Throat nebivolol [From Bystolic] Allergy Nausea Verified 03/14/18 16:11 shrimp Allergy Swelling Verified 03/14/18 16:11 Home Medications: Home Medications Diltiazem CD CAP* [Cardizem CD CAP*] 180 mg PO DAILY 03/14/18 [History Confirmed 03/14/18] PMH/Surg Hx/FS Hx/Imm Hx Endocrine/Hematology History: Denies: Hx Diabetes, Hx Thyroid Disease Cardiovascular History: Reports: Hx Angina, Hx Hypertension, Other Cardiovascular Problems/Disorders - murmur from childhood Denies: Hx Coronary Artery Disease, Hx Hypercholesterolemia, Hx Myocardial Infarction, Hx Valvular Heart Disease Respiratory History: Denies: Hx Asthma, Hx Chronic Obstructive Pulmonary Disease (COPD) GI History: Denies: Hx Ulcer - Cancer History Cancer Type, Location and Year: Ovarian cancer - Surgical History Surgery Procedure, Year, and Place: hysterectomy. tonsilectomy Infectious Disease History: No Infectious Disease History: Denies: Hx Clostridium Difficile, Hx Hepatitis, Hx Human Immunodeficiency Virus (HIV), Hx of Known/Suspected MRSA, Hx Shingles, Hx Tuberculosis, Hx Known/ Suspected VRE, Hx Known/Suspected VRSA, History Other Infectious Disease - lyme 03/2015, Traveled Outside the [place] in Last 30 Days - Family History Known Family History: Positive: Cardiac Disease - Father - of [place], Hypertension, Blood Disorder - [place] - Social History Alcohol Use: None Alcohol Amount: wine Hx Substance Use: No Substance Use Type: Reports: None Hx Tobacco Use: No Smoking Status (MU): Never Smoked Tobacco Have You Smoked in the Last Year: No Review of Systems Positive: Fever Positive: Abdominal Pain - low Positive: dysuria Positive: Other - bilateral back pain Positive: Other - two possible insect bites on neck All Other Systems Reviewed And Are Negative: Yes Physical Exam - Summary Physical Exam Summary: VITAL SIGNS: Reviewed. GENERAL: Patient is a well-developed and nourished female who is lying comfortable in the stretcher. Patient is not in any acute respiratory distress. HEAD AND FACE: No signs of trauma. No ecchymosis, hematomas or skull depressions. No sinus tenderness. EYES: PERRLA, EOMI x 2, No injected conjunctiva, no nystagmus. EARS: Hearing grossly intact. Ear canals and tympanic membranes are within normal limits. MOUTH: Oropharynx within normal limits. NECK: Supple, trachea is midline, no adenopathy, no JVD, no carotid bruit, no c- spine tenderness, neck with full ROM. CHEST: Symmetric, no tenderness at palpation LUNGS: Clear to auscultation bilaterally. No wheezing or crackles. CVS: Regular rate and rhythm, S1 and S2 present, no murmurs or gallops appreciated. ABDOMEN: Soft. Tenderness in bilateral flank. No signs of distention. No rebound no guarding, and no masses palpated. Bowel sounds are normal. EXTREMITIES: FROM in all major joints, no edema, no cyanosis or clubbing. NEURO: Alert and oriented x 3. No acute neurological deficits. Speech is normal and follows commands. SKIN: Dry and warm Triage Information Reviewed: Yes Vital Signs On Initial Exam: Initial Vitals Temp Pulse Resp BP Pulse Ox 99 F 78 16 130/48 95 03/14/18 16:14 03/14/18 16:14 03/14/18 16:14 03/14/18 16:14 03/14/18 16:14 Vital Signs Reviewed: Yes Diagnostics - Vital Signs Vital Signs Temp Pulse Resp BP Pulse Ox 03/14/18 16:14 99 F 78 16 130/48 95 - Laboratory Lab Results: Lab Results 03/14/18 03/14/18 03/14/18 Range/Units 17:49 17:49 17:53 WBC (3.5-10.8) 10^3/ul RBC (4.0-5.4) 10^6/ul Hgb (12.0-16.0) g/dl Hct (35-47) % MCV (80-97) fL MCH (27-31) pg MCHC (31-36) g/dl RDW (10.5-15) % Plt Count (150-450) 10^3/ul MPV (7.4-10.4) um3 Neut % (Auto) (38-83) % Lymph % (Auto) (25-47) % Drew % (Auto) (0-7) % Eos % (Auto) (0-6) % Baso % (Auto) (0-2) % Absolute Neuts (auto) (1.5-7.7) 10^3/ul Absolute Lymphs (auto) (1.0-4.8) 10^3/ul Absolute Monos (auto) (0-0.8) 10^3/ul Absolute Eos (auto) (0-0.6) 10^3/ul Absolute Basos (auto) (0-0.2) 10^3/ul Absolute Nucleated RBC 10^3/ul Nucleated RBC % Sodium 138 L (139-145) mmol/L Potassium 3.3 L (3.5-5.0) mmol/L Chloride 97 L (101-111) mmol/L Carbon Dioxide 29 (22-32) mmol/L Anion Gap 12 H (2-11) mmol/L BUN 18 (6-24) mg/dL Creatinine 0.67 (0.51-0.95) mg/dL Est GFR ( Amer) 108.6 (>60) Est GFR (Non-Af Amer) 84.5 (>60) BUN/Creatinine Ratio 26.9 H (8-20) Glucose 106 H (70-100) mg/dL Lactic Acid 1.1 (0.5-2.0) mmol/L Calcium 9.2 (8.6-10.3) mg/dL Total Bilirubin 1.40 H (0.2-1.0) mg/dL AST 21 (13-39) U/L ALT 17 (7-52) U/L Alkaline Phosphatase 66 (34-104) U/L C-Reactive Protein 79.64 H (< 5.00) mg/L Total Protein 6.3 L (6.4-8.9) g/dL Albumin 3.9 (3.2-5.2) g/dL Globulin 2.4 (2-4) g/dL Albumin/Globulin Ratio 1.6 (1-3) Lipase 25 (11.0-82.0) U/L Urine Color Yellow Urine Appearance Cloudy Urine pH 6.0 (5-9) Ur Specific [place] 1.013 (1.010-1.030) Urine Protein 2+(100 mg/dl) A (Negative) Urine Ketones 1+ A (Negative) Urine Blood 3+ A (Negative) Urine Nitrate Positive A (Negative) Urine Bilirubin Negative (Negative) Urine Urobilinogen Negative (Negative) Ur Leukocyte Esterase 3+ A (Negative) Urine WBC (Auto) 3+(>20/hpf) A (Absent) Urine RBC (Auto) 3+(>10/hpf) A (Absent) Ur Squamous Epith Cells Present A (Absent) Urine Bacteria 1+ A (Absent) Urine Glucose Negative (Negative) Urine Ascorbic Acid * A (Negative) 03/14/18 Range/Units 18:36 WBC 13.7 H (3.5-10.8) 10^3/ul RBC 3.96 L (4.0-5.4) 10^6/ul Hgb 12.0 (12.0-16.0) g/dl Hct 36 (35-47) % MCV 90 (80-97) fL MCH 30 (27-31) pg MCHC 34 (31-36) g/dl RDW 14 (10.5-15) % Plt Count 170 (150-450) 10^3/ul MPV 8.9 (7.4-10.4) um3 Neut % (Auto) 86.4 H (38-83) % Lymph % (Auto) 4.6 L (25-47) % Drew % (Auto) 8.8 H (0-7) % Eos % (Auto) 0 (0-6) % Baso % (Auto) 0.2 (0-2) % Absolute Neuts (auto) 11.9 H (1.5-7.7) 10^3/ul Absolute Lymphs (auto) 0.6 L (1.0-4.8) 10^3/ul Absolute Monos (auto) 1.2 H (0-0.8) 10^3/ul Absolute Eos (auto) 0 (0-0.6) 10^3/ul Absolute Basos (auto) 0 (0-0.2) 10^3/ul Absolute Nucleated RBC 0 10^3/ul Nucleated RBC % 0 Sodium (139-145) mmol/L Potassium (3.5-5.0) mmol/L Chloride (101-111) mmol/L Carbon Dioxide (22-32) mmol/L Anion Gap (2-11) mmol/L BUN (6-24) mg/dL Creatinine (0.51-0.95) mg/dL Est GFR ( Amer) (>60) Est GFR (Non-Af Amer) (>60) BUN/Creatinine Ratio (8-20) Glucose (70-100) mg/dL Lactic Acid (0.5-2.0) mmol/L Calcium (8.6-10.3) mg/dL Total Bilirubin (0.2-1.0) mg/dL AST (13-39) U/L ALT (7-52) U/L Alkaline Phosphatase (34-104) U/L C-Reactive Protein (< 5.00) mg/L Total Protein (6.4-8.9) g/dL Albumin (3.2-5.2) g/dL Globulin (2-4) g/dL Albumin/Globulin Ratio (1-3) Lipase (11.0-82.0) U/L Urine Color Urine Appearance Urine pH (5-9) Ur Specific [place] (1.010-1.030) Urine Protein (Negative) Urine Ketones (Negative) Urine Blood (Negative) Urine Nitrate (Negative) Urine Bilirubin (Negative) Urine Urobilinogen (Negative) Ur Leukocyte Esterase (Negative) Urine WBC (Auto) (Absent) Urine RBC (Auto) (Absent) Ur Squamous Epith Cells (Absent) Urine Bacteria (Absent) Urine Glucose (Negative) Urine Ascorbic Acid (Negative) Result Diagrams: 03/14/18 18:36 03/14/18 17:49 Lab Statement: Any lab studies that have been ordered have been reviewed, and results considered in the medical decision making process. GIGU Course/Dx - Course Assessment/Plan: This patient is a 41-year-old female who presents to the emergency department with a chief complaint of polydipsia polyuria and polyphagia. She reports that she has past medical history significant for diabetes but she is not taking any of her medications. Physical shows a chronic microcytic hypochromic anemia, sodium 137, carbon dioxide of 20 and a couple 15. LFTs are increase and glucose of 355. Urinalysis shows a high specific gravity, positive protein and ketones, and also it seems that is contaminated. In the ED the patient was given 3 L of IV fluids and also she was given insulin for the hyperglycemia. Succumb BMP shows the sodium is 137, carbon dioxide is 218 and a lap is 14 glucose is 273. The urine also shows 2+ ketones therefore believe that the patient still has ketones in the blood therefore she will need admission for further workup and management. I discussed my physical exam findings and test results with Dr. Law from the hospitalist services and he reports that he will every the patient and he will make decision was admitted or discharged the patient. My recommendation the patient will will be admitted to the hospitalist for further workup and management. I discussed all the findings and test results with the patient. Patient was instructed to return to the emergency room immediately if any of the symptoms return or worsens. Plan of care was discussed with the patient and understands and agrees. All questions were answered at patient satisfaction. There were no further complaints or concerns. Lung exam before discharge: CTA B /L. Good air exchange. No wheezing or crackles heard. CVS: S1 and S2 present. No murmurs appreciated. Patient is alert and oriented x 3. Patient is hemodynamically stable. Patient will be discharged home with follow up PCP in the next 2-3 days - Diagnoses Provider Diagnoses: UTI (urinary tract infection) Discharge - Sign-Out/Discharge Documenting (check all that apply): Discharge/Admit/Transfer - Discharge Plan Condition: Stable Disposition: HOME Prescriptions: Sulfamethox/Trimethoprim DS* [Bactrim DS 800/160 TAB*] 1 tab PO BID #14 tab Patient Education Materials: Urinary Tract Infection in Women (ED) Referrals: Rj BYNUM,Maliha Fontenot [Primary Care Provider] - 3 Days Additional Instructions: Please take medication as prescribed. FOLLOW UP WITH YOUR PRIMARY CARE PROVIDER WITHIN 2-3 DAYS. RETURN TO THE ED FOR ANY WORSENING OR NEW SYMPTOMS. - Billing Disposition and Condition Condition: STABLE Disposition: HOME The documentation as recorded by the Eloy scherer Natalie accurately reflects the service I personally performed and the decisions made by me, Seun Agee MD.
[2018-03-14 22:33] VITALS: BP 160/79
--- NOTE | 2018-03-16 09:07 | PN ---
Progress Note - Progress Note Date of Service: 03/14/18 Note: Urine culture preliminary grew Escherichia coli 100,000 Patient placed on Bactrim prior to discharge We will await any sensitivities Nothing further at this time Mei Bolton, PAC
--- NOTE | 2018-03-17 07:20 | PN ---
Progress Note - Progress Note Date of Service: 03/13/18 Note: Pt. seen in ED 03/13 and dx with UTI. Rx bactrim. Urine culture today is growing >100,000 e. coli susceptible to bactrim. No change in treatment plan needed at this time.
== END 2018-03-14 22:31 | disposition home or self-care (01) ==
LOC: ED 16:08
DX: N39.0 Urinary tract infection, site not specified (principal); S10.96XD Insect bite of unspecified part of neck, subsequent encounter; W57.XXXD Bitten or stung by nonvenomous insect and other nonvenomous arthropods, subsequent encounter; D50.9 Iron deficiency anemia, unspecified; E11.9 Type 2 diabetes mellitus without complications; I20.9 Angina pectoris, unspecified; I10 Essential (primary) hypertension; Z85.43 Personal history of malignant neoplasm of ovary; Z90.710 Acquired absence of both cervix and uterus; Z88.8 Allergy status to other drugs, medicaments and biological substances
CPT/HCPCS: 36415; 80053; 81003; 81015; 83605; 83690; 85025; 86140; 87040; 87077; 87086; 87186; 96365; 96375; 99283; J0696; J2765